=== PATIENT | female | born 1935 | race Caucasian/White ===

== ENCOUNTER 2017-01-30 15:43 | Inpatient (IN) | payer MEDICARE, BC ==
[~2017-01-30] VITALS: Ht 165.1 cm; Wt 60.8 kg
[~2017-01-30 15:43] MED LIST: ALBUTEROL2.5 MG/3 M INH; ATROVENT 0.02%2.5 ML UPD; BAYER CHEWABLE81 MG PO; BROVANA15 MCG/2 M NEB; COZAAR100 MG PO; CRESTOR10 MG PO; DUONEB 2.5-0.5 M3 ML UPD; ELAVIL10 MG PO; GLUCOPHAGE500 MG PO; METOPROLOL TAR100 M1 PO; NORVASC5 MG PO; PERPHEN AMITRIP PO; PERPHENAZINE2 MG PO; PLAVIX75 MG PO; PROVENTIL HFA6.7 GM INH; PULMICORT0.5 MG/21 NEB; SYNTHROID50 MCG PO; TOPROL XL50 MG PO
--- NOTE | 2017-01-30 16:05 | NUR ---
RECIEVED PATIENT VIA WHEELCHAIR. PATIENT AMBULATED FROM THE WHEELCHAIR AROUND THE ROOM. GAIT STEADY. PATIENT CHANGED INTO GOWN INDEPENDENTLY. BROUGHT PATIENT A CUP OF ICE WATER. FAMILY AT BEDSIDE.
[2017-01-30 16:10] VITALS: BP 153/89
[2017-01-30 17:00] LABS: BASOPHILS 0.5 % (0.0-2.0); EOSINOPHILS 0 % (0-7); HEMATOCRIT 43.8 % (36.0-48.0); HEMOGLOBIN 14.7 g/dL (12-16); MCH 32.2 pg (26.0-34.0); MCHC 33.6 g/dL (31.0-37.0); MCV 96.1 fL (80.0-100.0); MEAN PLATELET VOLUME 10.2 fL (7.4-10.4); NEUTROPHILS 84.5 % (40-80); PLATELET COUNT 174 10x3/uL (130-400); RBC 4.56 10x6/uL (4.00-5.40); RDW 12.7 % (11.5-14.5); WBC 7.7 10x3/uL (4.8-10.8)
[2017-01-30 17:09] LABS: ALBUMIN 3.6 g/dL (3.4-5.0); ANION GAP 12.9 mmol/L (8-16); BILIRUBIN - TOTAL 0.41 mg/dL (0.2-1.3); CALCIUM 9.7 mg/dL (8.5-10.1); CARBON DIOXIDE 29.3 mmol/L (21.0-32.0); CREATININE - SERUM 1.2 mg/dL (0.6-1.3); POTASSIUM - SERUM 4.2 mmol/L (3.5-5.1); PROTEIN - SERUM 7.6 g/dL (6.4-8.2)
--- NOTE | 2017-01-30 17:30 | NUR ---
TRIED TO START IV X'S 1 ATTEMPT TO LEFT FOREARM, UNSUCCESSFUL. DO NOT SEE ANY OTHER VIENS TO STICK. WILL FIND ANOTHER NURSE.
--- NOTE | 2017-01-30 18:00 | NUR ---
IV STARTED TO RIGHT AC BY CHICA CRABTREE.
[2017-01-30 18:25] VITALS: BP 153/89; BMI 22.3
[2017-01-30 20:00] VITALS: BP 154/77
--- NOTE | 2017-01-30 21:10 | NUR ---
AWAKE,ALERT, NO COMPLAINTS AT PRESENT. O2 AT 2L PER NC ON. NO DISTRESS NOTED. BILATERAL LUNG SOUNDS WIHT WHEEZING NOTED. IV INFUSING TO RAC WIHTOUT REDNESS OR EDEMA NOTED. CL IN REACH. FAMILY AT BEDSIDE.
[2017-01-31] VITALS: BP 120/70
--- NOTE | 2017-01-31 02:26 | NUR ---
EYES CLOSED. RESP EVEN AND UNLABORED. NO DISTRESS NOTED.
--- NOTE | 2017-01-31 03:29 | NUR ---
PT LYING BACK IN BED RESTING QUIETLY WITH EYES CLOSED. RR NONLABORED. NO S/S OF DISTRESS OR ANY CURRENT NEEDS AT THIS TIME. CL IN REACH, BED IN LOWEST, SIDE RAILS X2. WILL CTM.
[2017-01-31 04:00] VITALS: BP 153/83
[2017-01-31 05:29] LABS: BASOPHILS 0.4 % (0.0-2.0); EOSINOPHILS 0 % (0-7); HEMOGLOBIN 13.3 g/dL (12-16); IMMATURE GRANULOCYTES 1.1 % (0-5); LYMPHOCYTES 16.4 % (15-50); MCH 31.5 pg (26.0-34.0); MCHC 33.3 g/dL (31.0-37.0); MCV 94.8 fL (80.0-100.0); MEAN PLATELET VOLUME 10.2 fL (7.4-10.4); MONOCYTES 2.4 % (2-11); NEUTROPHILS 79.7 % (40-80); PLATELET COUNT 157 10x3/uL (130-400); RBC 4.22 10x6/uL (4.00-5.40); RDW 12.6 % (11.5-14.5)
[2017-01-31 05:32] LABS: WBC 5.5 10x3/uL (4.8-10.8)
[2017-01-31 05:55] LABS: ANION GAP 13.7 mmol/L (8-16); CALCIUM 9.2 mg/dL (8.5-10.1); CARBON DIOXIDE 25.3 mmol/L (21.0-32.0); CREATININE - SERUM 1.1 mg/dL (0.6-1.3); MAGNESIUM - SERUM 2.2 mg/dL (1.8-2.4); PHOSPHOROUS 3.2 mg/dL (2.5-4.9)
[2017-01-31 08:15] VITALS: BP 165/86
--- NOTE | 2017-01-31 10:33 | NUR ---
Patient Name: HAVEN VU Admission Status: Urgent Accout number: [id number] Admission Date: 01-30-2017 : 1935 Admission Diagnosis: Attending: MARCIA Current LOS: 1 Anticipated DC Date: Planned Disposition: Primary Insurance: MEDICARE A & B Discharge Planning Comments: CM MET WITH PATIENT AND GRANDDAUGHTER AT BEDSIDE TO DISCUSS D/C PLANNING AND NEEDS. THE PATIENT PLANS TO DISCHARGE HOME WHERE SHE RESIDES WITH HER SPOUSE. SHE STATES SHE IS INDEPENDENT OF ALL ADL'S AND THEY RESIDE IN A 2-STORY HOME BUT STATES SHE DOES NOT USE THE STAIRS. SHE DOES HAVE HOME OXYGEN, CPAP, AND NEBULIZER SUPPLIED BY [facility]. SHE DENIES THE NEED FOR ADDITIONAL DME/HOME HEALTH AT THIS TIME. THE PATIENT STATES HER HOME ENVIRONMENT IS SAFE TO RETURN TO. SHE STATED HER DAUGHTER "SHANNON ESPINOZA" () IS AN BUSINESS SALES CONSULTANT AND LIVES NEXT DOOR. SHE STATES HER TRANSPORTATION HOME WILL BE ONE OF HER FAMILY MEMBERS. CM WILL FOLLOW AND ASSIST NEEDED WITH DISCHARGE PLANNING/NEEDS. Preparation Plant Supervisor: Lisa De La Torre RN/CM * Is the patient Alert and Oriented? Yes 0 * How many steps to enter\\exit or inside your home? 4 0 * PCP Dr. Gonzales ([phone]) 0 * Pharmacy [facility] ([facility]) [phone] 0 * Preadmission Environment Home with Family 0 * ADLs Independent 0 * Equipment CPAP Nebulizer Oxygen 0 * Community resources currently utilized None 0 * Please name any agencies selected above. DME supplied by [facility] ([phone]) 0 * Additional services required to return to the preadmission environment? No 0 * Can the patient safely return to the preadmission environment? Yes 0 * Has this patient been hospitalized within the prior 30 days at any hospital? No 0 Grand Total: 0
[2017-01-31 12:45] VITALS: Ht 165.1 cm; Wt 60.8 kg
[2017-01-31 12:57] VITALS: BP 152/79
--- NOTE | 2017-01-31 14:55 | NUR ---
REPORT RECEIVED FROM REINA WHITEHEAD.
--- NOTE | 2017-01-31 16:06 | NUR ---
EVENING MEDS ADMINISTERED PER ORDER. FAMILY IN ROOM. CALL LIGHT IN REACH.
[2017-01-31 16:15] VITALS: BP 131/75
--- NOTE | 2017-01-31 16:51 | NUR ---
URINE SAMPLE COLLECTED AND SENT TO LAB.
[2017-01-31 17:15] LABS: APPEARANCE CLEAR (CLEAR); BILIRUBIN NEGATIVE (NEGATIVE); COLOR YELLOW (YELLOW); GLUCOSE 1000 mg/dL (NEGATIVE); KETONE NEGATIVE (NEGATIVE); LEUKOCYTE ESTERASE NEGATIVE (NEGATIVE); NITRITE NEGATIVE (NEGATIVE); PROTEIN NEGATIVE (NEGATIVE); UROBILINOGEN NORMAL (NORMAL)
[2017-01-31 20:00] VITALS: BP 133/59
--- NOTE | 2017-01-31 23:28 | NUR ---
ASSESSED AT THE BEGINNING OF THE SHIFT. PT IS ALERT AND ORIENTED, ABLE TO VERBALIZE NEEDS. SHE IS UP AD ROSA TO THE BATHROOM AND IS WEARING O2 AT 2 LITERS IN THE DAYTIME WITH CPAP AT NIGHTTIME. SHE HAS A RIGHT A/C IV SITE AND IT IS TO BE INFUSING AT 100 PER HR. BUT THE DAUGHTER HAS REQUESTED IT ONLY BE 50 PER HR SO IT IS GOING AT 50. AT THE BEGINNING OF THE SHIFT SHE HAD ABOUT 10 FAMILY MEMBERS IN THE ROOM BUT THERE IS ONLY A DAUGHTER SPENDING THE NIGHT. THE BED IS LOW, RAILS UP X'S 2 WITH THE CALL LIGHT AT HAND.
[2017-02-01] VITALS: BP 135/69
[2017-02-01 04:00] VITALS: BP 147/72
--- NOTE | 2017-02-01 07:35 | NUR ---
PATIENT RECEIVED ALERT IN MID REEDER POSITION RESTING QUIETLY. RESPIRATIONS EVEN AND UNLABORED. SIDE RAILS UP X2. BED IN LOW POSITION. CALL LIGHT IN REACH. DENIES NEEDS. FAMILY PRESENT.
[2017-02-01 08:50] VITALS: BP 147/87
--- NOTE | 2017-02-01 08:55 | NUR ---
PATIENT IN HIGH REEDER POSITION ALERT AND RESTING QUIETLY. RESPIRATIONS EVEN AND UNLABORED. SCHEDULED MEDICATION ADMINSITERED. DENIES NEEDS. FAMILY PRESENT. SIDE RAILS UP X2. BED IN LOW POSITION. CALL LIGHT IN REACH.
[2017-02-01 10:12] LABS: IMMUNOGLOBULIN E 11 IU/mL (0-100)
--- NOTE | 2017-02-01 11:05 | NUR ---
PATIENT ALERT IN BED WITH FAMILY AT BEDSIDE. RESPIRATIONS EVEN AND UNLABORED. DENIES NEEDS. SIDE RAILS UP X2. BED IN LOW POSITION. CALL LIGHT IN REACH.
[2017-02-01 12:48] VITALS: BP 142/94
--- NOTE | 2017-02-01 13:00 | NUR ---
PATIENT ALERT IN MID REEDER POSITION WITH FAMILY AT BEDSIDE. NO SIGNS OF DISTRESS NOTED. DENIES NEEDS. SIDE RAILS UP X2. BED IN LOW POSITION. CALL LIGHT IN REACH.
--- NOTE | 2017-02-01 16:47 | NUR ---
ALERT IN HIGH REEDER POSIITION. NO SIGNS OF DISTRESS NOTED. SCHEDULED MEDICATION ADMINISTERED. DENIES NEEDS. FAMILY PRESENT. SIDE RAILS UP X2. BED IN LOW POSITION. CALL LIGHT IN REACH.
[2017-02-01 16:49] VITALS: BP 110/71
--- NOTE | 2017-02-01 19:20 | NUR ---
PATIENT REQUESTED TYLENOL FOR 3/10 PAIN. PATIENT DENIES OTHER NEEDS AT THIS TIME. BED IN LOWEST POSITION AND CALL LIGHT WITHIN REACH.
[2017-02-01 20:59] VITALS: BP 161/85
[2017-02-02] VITALS: BP 168/88
[2017-02-02 04:00] VITALS: BP 149/73
[2017-02-02 05:24] LABS: BASOPHILS 0.1 % (0.0-2.0); EOSINOPHILS 0 % (0-7); HEMATOCRIT 38.9 % (36.0-48.0); HEMOGLOBIN 13.1 g/dL (12-16); IMMATURE GRANULOCYTES 1.3 % (0-5); LYMPHOCYTES 5.7 % (15-50); MCH 31.3 pg (26.0-34.0); MCHC 33.7 g/dL (31.0-37.0); MCV 93.1 fL (80.0-100.0); MEAN PLATELET VOLUME 9.8 fL (7.4-10.4); MONOCYTES 2.9 % (2-11); PLATELET COUNT 154 10x3/uL (130-400); RBC 4.18 10x6/uL (4.00-5.40); RDW 12.5 % (11.5-14.5); WBC 8.2 10x3/uL (4.8-10.8)
[2017-02-02 06:13] LABS: ANION GAP 11.1 mmol/L (8-16); CALCIUM 9.5 mg/dL (8.5-10.1); CARBON DIOXIDE 26.5 mmol/L (21.0-32.0); POTASSIUM - SERUM 3.6 mmol/L (3.5-5.1)
--- NOTE | 2017-02-02 07:45 | NUR ---
PATIENT RECEIVED ALERT IN HIGH REEDER POSITION. RESPIRATIONS EVEN AND UNLABORED. DENIES NEEDS. SIDE RAILS UP X2. BED IN LOW POSITION. CALL LIGHT IN REACH.
[2017-02-02 07:48] VITALS: BP 132/79
--- NOTE | 2017-02-02 08:30 | NUR ---
ALERT IN HIGH REEDER POSITION EATING BREAKFAST. TOLERATING WELL. SCHEDULED MEDICATION ADMINISTERED. DENIES NEEDS. FAMILY AT BEDSIDE.
--- NOTE | 2017-02-02 10:17 | NUR ---
PATIENT SITTING UP IN CHAIR ALERT WITH FAMILY PRESENT. NO SIGNS OF DISTRESS NOTED. SCHEDULED MEDICATION ADMINISTERED. IV TUBING CHANGED PER PROTOCOL. DENIES NEEDS. CALL LIGHT IN REACH.
[2017-02-02 12:22] VITALS: BP 161/83
--- NOTE | 2017-02-02 14:07 | NUR ---
PATIENT ALERT IN BED WITH FAMILY AT BEDSIDE. NO SIGNS OF DISTRESS NOTED. DENIES NEEDS. SIDE RAILS UP X2. BED IN LOW POSITION. CALL LIGHT IN REACH.
[2017-02-02 15:42] VITALS: BP 143/75
--- NOTE | 2017-02-02 17:00 | NUR ---
PATIENT ALERT IN BED EATING DINNER. NO SIGNS OF DISTRESS NOTED. INSTRUCTED PATIENT THAT WHEN SHE WAS READY FOR HER PRUNE JUICE/MOM COCKTAIL TO LEFT STAFF KNOW. STATES UNDERSTANDING. CALL LIGHT IN REACH. BED IN LOW POSITION. SIDE RAILS UP X2.
[2017-02-02 21:00] VITALS: BP 141/74
--- NOTE | 2017-02-02 21:44 | NUR ---
PATIENT RESTING IN BED WITH FAMILY AT BEDSIDE. ADMINISTERED MEDICATIONS AND PATIENT DENIES OTHER NEEDS AT THIS TIME. BED IN LOWEST POSITION AND CALL LIGHT WITHIN REACH. ENCOURAGED PATIENT TO CALL IF SHE HAS OTHER NEEDS.
[2017-02-03 01:30] VITALS: BP 157/78
[2017-02-03 04:00] VITALS: BP 117/66
[2017-02-03 05:10] LABS: BASOPHILS 0.2 % (0.0-2.0); EOSINOPHILS 0 % (0-7); HEMATOCRIT 37.6 % (36.0-48.0); HEMOGLOBIN 12.8 g/dL (12-16); IMMATURE GRANULOCYTES 2.2 % (0-5); LYMPHOCYTES 10.2 % (15-50); MCH 31.4 pg (26.0-34.0); MCV 92.2 fL (80.0-100.0); MEAN PLATELET VOLUME 10.1 fL (7.4-10.4); MONOCYTES 10.8 % (2-11); NEUTROPHILS 76.6 % (40-80); PLATELET COUNT 158 10x3/uL (130-400); RBC 4.08 10x6/uL (4.00-5.40); RDW 12.4 % (11.5-14.5); WBC 8.7 10x3/uL (4.8-10.8)
[2017-02-03 05:45] LABS: ALBUMIN 2.8 g/dL (3.4-5.0); ANION GAP 8.4 mmol/L (8-16); BILIRUBIN - TOTAL 0.28 mg/dL (0.2-1.3); CALCIUM 8.9 mg/dL (8.5-10.1); CARBON DIOXIDE 29.8 mmol/L (21.0-32.0); CREATININE - SERUM 0.9 mg/dL (0.6-1.3); MAGNESIUM - SERUM 2.1 mg/dL (1.8-2.4); POTASSIUM - SERUM 3.2 mmol/L (3.5-5.1)
--- NOTE | 2017-02-03 07:10 | NUR ---
PATIENT RECEIVED ALERT IN HIGH REEDER POSITION. RESPIRATIONS EVEN AND UNLABORED. FAMILY AT BEDSIDE. IV TO RIGHT AC RED AND PATIENT C/O PAIN TO SITE. IV D/C WITH CATH TIP INTACT. SITE COVERED WITH GAUZE AND BANDAID. DENIES NEEDS. SIDE RAILS UP X2. BED IN LOW POSITION. CALL LIGHT IN REACH.
--- NOTE | 2017-02-03 07:23 | HP ---
PATIENT: HAVEN VU MEDICAL RECORD: [id number] ACCOUNT: [id number] LOCATION:D.MS [id number] : 37 ADMISSION DATE: 01/30/17 HISTORY AND PHYSICAL EXAMINATION DATE OF ADMISSION: 01/30/2017 CHIEF COMPLAINT: Shortness of breath. HISTORY OF PRESENT ILLNESS: The patient is a 81-year-old female with longstanding history of COPD. Over the weekend, she had been treated by her daughter with has a Z-SALVADOR as well as a Medrol Dosepak for shortness of breath. She presented here 2 days ago and was placed on prednisone 40 mg every day, as well as updraft therapy. She states that she continued to have coughing and continued to have congestion and wheezing, which has not improved. It was felt the patient had failed outpatient therapy and needed hospitalization. PAST MEDICAL HISTORY: Significant that she had a history of having coronary artery disease with stents placed. She has had hemorrhoidectomy. She had a hysterectomy. She has had COPD, history of depression, hyperlipidemia, and hypertension. FAMILY HISTORY: Father had malignant neoplasm, cancer of the liver. Father has had substance abuse. Mother had heart disease. ALLERGIES: DEMEROL, EPINEPHRINE, AND PENICILLIN. CURRENT MEDICATIONS: Include amlodipine 5 mg 1 p.o. every day, aspirin 81 mg once a day, recently placed on Zithromax, Brovana 15 mcg per 2mL b.i.d., Valium on a p.r.n. basis, doxycycline 100 mg b.i.d., DuoNeb updrafts q.4 hours p.r.n. shortness of breath, levothyroxine 50 mcg once a day, losartan 100 mg once a day, metformin 500 mg 1 p.o. daily, metoprolol tartrate 100 mg p.o. b.i.d., nabumetone 500 mg 2 tabs p.r.n., nitroglycerin sublingual p.r.n., perphenazine/amitriptyline 2 mg/10 mg 1 p.o. b.i.d. Recently placed on Poly Hist Forte, prednisone, and Crestor 20 mg 1 p.o. every day. SOCIAL HISTORY: The patient is a former smoker, stopped in 1991, had been a 1 pack per day smoker. Educated through the 12th grade. 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 She denies any ethanol use or abuse. REVIEW OF SYSTEMS: CONSTITUTIONAL: She denies any headaches, seizures or syncope. She denies change in visual or auditory acuity. PULMONARY: She denies any sputum production, but has had increasing shortness of breath. She is on O2 at 3 liters. GASTROINTESTINAL: No chronic nausea, vomiting, melena or hematochezia. GENITOURINARY: No urgency, frequency or dysuria. PHYSICAL EXAMINATION: VITAL SIGNS: Today, her weight is 134, her blood pressure 172/90, her pulse 104, respirations were 20, O2 sat on 3 liters was 86%, and temperature is 97. HEENT: Head is normocephalic. No lesions. Ears: TMs clear. Eyes: Pupils equal, round and reactive to light. Her extraocular movements are intact. Her nasal cavity and oropharynx are clear. NECK: Supple. There is no adenopathy. HISTORY AND PHYSICAL [id number] HAVEN VU HEART: Slightly tachycardic. LUNGS: She had end-expiratory wheezes. ABDOMEN: Soft and bowel sounds are positive. No organomegaly. GENITAL AND RECTAL: Deferred. ASSESSMENT: Chronic obstructive pulmonary disease exacerbation failing outpatient therapy, history of arteriosclerotic heart disease, hypertension, hyperlipidemia, diabetes mellitus, and hypothyroidism. PLAN: The patient will be admitted. She will be placed on Rocephin 1 gram q.24 hours, Zithromax 500 mg IV q.24 hours, Solu-Medrol 1 mg/kg q.8 hours. Pulmonary consultation will be obtained. The patient will have O2 supplementation. She also will have ABGs on admission. TRANSINT:[id number] Voice Confirmation ID: [id number] DOCUMENT ID: [id number] ENRIQUETA HARRIS MD at 0723 CC: [id number] DICTATION DATE: 01/30/171744 SLOT EDITOR: 01/30/171923 [place] [address]
[2017-02-03 07:48] VITALS: BP 162/74
--- NOTE | 2017-02-03 08:25 | NUR ---
PATIENT SITTING UP IN CHAIR ALERT. NO SIGNS OF DISTRESS NOTED. SCHEDULED MEDICATION ADMINISTERED. DENIES NEEDS. CALL LIGHT IN REACH.
--- NOTE | 2017-02-03 09:45 | NUR ---
22 GAUGE IV SITED TO LEFT HAND BY REINA PRESTON
[2017-02-03 10:12] LABS: IMMUNOGLOBULIN A 161 mg/dL (64-422); IMMUNOGLOBULIN G 960 mg/dL (700-1600)
--- NOTE | 2017-02-03 10:50 | NUR ---
NUTRITION MONITORING & EVAL CHART REVIEWED, PT VISIT. TOLERATING ADA DIET, 75% INTAKE. WILL CONTIUE TO PROVIDE DIET. INFORMED DIET OFFICE RE:PT REQUEST FOR LACTAID MILK. RD FOLLOWING
--- NOTE | 2017-02-03 12:23 | NUR ---
ALERT IN BED EATING LUNCH. TOLERATING WELL. DENIES NEEDS. SIDE RAILS UP X2. BED IN LOW POSITION. CALL LIGHT IN REACH.
[2017-02-03 12:27] VITALS: BP 149/85
[2017-02-03 16:05] VITALS: BP 159/85
--- NOTE | 2017-02-03 16:50 | NUR ---
PATIENT ALERT IN HIGH REEDER POSITION. RESPIRATIONS EVEN AND UNLABORED. DENIES NEEDS. FAMILY PRESENT. SIDE RAILS UP X2. BED IN LOW POSITION. CALL LIGHT IN REACH.
--- NOTE | 2017-02-03 18:45 | NUR ---
PATIENT ALERT IN BED WATCHING TV. NO SIGNS OF DISTRESS NOTED. DENIES NEEDS. SIDE RAILS UP X2. BED IN LOW POSITION. CALL LIGHT IN REACH.
[2017-02-03 19:00] VITALS: BP 129/73
--- NOTE | 2017-02-03 19:48 | NUR ---
PATIENT RESTING IN BED WITH COMPLAINT OF IV SITE BURNING. I SLOWED THE RATE OF THE ANTIBIOTIC INFUSION AND THE PATIENT STATED THAT IT IS FEELING BETTER. FAMILY AT BEDSIDE AND PATIENT DENIES OTHER NEEDS AT THIS TIME. BED IN LOWEST POSITION AND CALL LIGHT WITHIN REACH. ENCOURAGED PATIENT TO CALL IF SHE HAS OTHER NEEDS.
[2017-02-04 04:00] VITALS: BP 143/71
[2017-02-04 06:28] LABS: BASOPHILS 0.3 % (0.0-2.0); EOSINOPHILS 0 % (0-7); HEMATOCRIT 40.2 % (36.0-48.0); HEMOGLOBIN 13.8 g/dL (12-16); IMMATURE GRANULOCYTES 2.9 % (0-5); LYMPHOCYTES 7.6 % (15-50); MCH 31.8 pg (26.0-34.0); MCHC 34.3 g/dL (31.0-37.0); MCV 92.6 fL (80.0-100.0); MEAN PLATELET VOLUME 10.3 fL (7.4-10.4); MONOCYTES 3.9 % (2-11); NEUTROPHILS 85.3 % (40-80); PLATELET COUNT 141 10x3/uL (130-400); RBC 4.34 10x6/uL (4.00-5.40); RDW 12.3 % (11.5-14.5); WBC 6.9 10x3/uL (4.8-10.8)
[2017-02-04 06:52] LABS: ANION GAP 7.5 mmol/L (8-16); CALCIUM 9.1 mg/dL (8.5-10.1); CARBON DIOXIDE 33.1 mmol/L (21.0-32.0); POTASSIUM - SERUM 4.6 mmol/L (3.5-5.1)
--- NOTE | 2017-02-04 07:00 | NUR ---
REPORT RECIEVED ASSUMED CARE. PATIENT IN BED WITH IV INTACT. NO COMPLAINTS AT THIS TIME. CALL LIGHT WITHIN REACH.
--- NOTE | 2017-02-04 07:45 | NUR ---
PATIENT BACK TO ROOM FROM XRAY. ASSESSMENT COMPLETE, VS STABLE. NO COMPLAINTS AT THIS TIME. CALL LIGHT WITHIN REACH. IV INTACT.
[2017-02-04 08:13] VITALS: BP 140/82
--- NOTE | 2017-02-04 11:50 | NUR ---
PATIENT IN BED WITH IV INTACT. NO COMPLAINTS A THIS TIME. CALL LIGHT WITHIN REACH.
[2017-02-04 12:18] VITALS: BP 146/77
[2017-02-04 15:52] VITALS: BP 141/80
--- NOTE | 2017-02-04 16:30 | NUR ---
PATIENT SITTING UP ON SIDE OF BED WITH NO COMPLAINTS. FAMILY AT BEDSIDE. CALL LIGHT WITHIN REACH.
--- NOTE | 2017-02-04 18:55 | NUR ---
PATIENT IN BED WITH IV INTACT. NO COMPLAINTS AT THIS TIME. CALL LIGHT WITHIN REACH. FAMILY AT BEDSIDE.
[2017-02-04 19:00] VITALS: BP 148/83
--- NOTE | 2017-02-04 20:13 | NUR ---
PT ASSESSMENT COMPLETE AWAKE AND ALERT ORIENTED X 3 PT SITTING UP IN BED WITH NO DISTRESS NOTED. CPAP PREPARED FOR PT USE AT HS. WILL GIVE MEDS PER ORDER. PT DENEIS NEEDS OR PAIN AT THIS TIME.
--- NOTE | 2017-02-04 23:54 | NUR ---
RESTING QUIETLY WITH NO DISTRESS NOTED VOICES ALL NEEDS CALL LIGHT IN REACH SIDE RAILS UP X 2
[2017-02-05 04:00] VITALS: BP 141/77
[2017-02-05 05:25] LABS: BASOPHILS 0.1 % (0.0-2.0); EOSINOPHILS 0 % (0-7); HEMATOCRIT 37.7 % (36.0-48.0); HEMOGLOBIN 12.7 g/dL (12-16); IMMATURE GRANULOCYTES 2.2 % (0-5); LYMPHOCYTES 16.9 % (15-50); MCH 31.4 pg (26.0-34.0); MCHC 33.7 g/dL (31.0-37.0); MCV 93.1 fL (80.0-100.0); MONOCYTES 9.1 % (2-11); NEUTROPHILS 71.7 % (40-80); PLATELET COUNT 134 10x3/uL (130-400); RBC 4.05 10x6/uL (4.00-5.40); RDW 12.2 % (11.5-14.5); WBC 7.3 10x3/uL (4.8-10.8)
[2017-02-05 05:35] LABS: ANION GAP 6.5 mmol/L (8-16); CALCIUM 8.7 mg/dL (8.5-10.1); CARBON DIOXIDE 32.2 mmol/L (21.0-32.0)
[2017-02-05 05:36] LABS: POTASSIUM - SERUM 3.7 mmol/L (3.5-5.1)
[2017-02-05] MEDS ORDERED: SINGULAIR10 MG PO (06:50)
[2017-02-05] MEDS ORDERED: COZAAR50 MG PO (06:53)
[2017-02-05] MEDS ORDERED: ZITHROMAX500 MG PO (06:54)
[2017-02-05] MEDS ORDERED: XOPENEX 1.1.25 MG/3 INH (06:54)
[2017-02-05] MEDS ORDERED: CEFUROXIME250 MG PO (06:55)
[2017-02-05] MEDS ORDERED: PREDNISONE10 MG PO (06:58)
[2017-02-05 08:50] VITALS: BP 131/79
--- NOTE | 2017-02-05 10:26 | NUR ---
CM REASSESSMENT NOTE: PATIENT IS DISCHARGING HOME TODAY-FAMILY AT BEDSIDE AND HE WILL DRIVE HER HOME. PATIENT DENIES HOME HEALTH (DAUGHTER IS AN MUSHROOM SORTER GRADER AND LIVES NEXT DOOR). PATIENT HAS O2 AND NEBULIZER AT HOME. PORTABLE IS NOT IN HER ROOM AND SHE STATED SHE DOES NOT WEAR OXYGEN ALL THE TIME AND THAT SHE WOULD BE FINE RIDING HOME WITHOUT O2. CM OFFERED TO CALL OXYGEN SUPPLIER TO BRING PORTABLE AND SHE DENIED STATING SHE WOULD BE FINE WITHOUT O2 GOING HOME. CM WILL CONTINUE TO FOLLOW PATIENT WITH D/C NEEDS AND PLANS.
[2017-02-05 11:30] VITALS: BP 122/73
--- NOTE | 2017-02-05 12:38 | NUR ---
DISCHRGE PAPERS AND INSTRUCTIONS GIVEN TO PATIENT AND SPOUSE, QUESTIONS ANSWERED, IV REMOVED WITH TIP INTACT, DISCHARGED PER WC WITH BELONGINGS.
--- NOTE | 2017-02-18 07:06 | DS ---
PATIENT:HAVEN VU :39 MEDICAL RECORD: [id number] DISCHARGE SUMMARY ADMISSION DATE: 01/30/17 DISCHARGE DATE: 02/05/17 DATE OF ADMISSION: 01/30/2017 DATE OF DISCHARGE: 02/05/2017 CONDITION ON DISCHARGE: Improved. ADMITTING DIAGNOSES: Chronic obstructive pulmonary disease exacerbation, history of arteriosclerotic heart disease, hypertension, hyperlipidemia, diabetes, hypothyroidism. DISCHARGE DIAGNOSES: Chronic obstructive pulmonary disease exacerbation, constipation, arteriosclerotic heart disease, hypothyroidism, gastroesophageal reflux, allergic rhinitis, O2 dependency, essential tremor. HOSPITAL COURSE: The patient is a 81-year-old female who had been treated on outpatient basis. Over the weekend prior to her admission, she had developed continued cough, continued congestion, continued wheezing. Despite being on prednisone 40 mg as well as updraft therapy, she continued to have coughing, congestion and it was felt the patient warranted admission. PHYSICAL EXAMINATION: VITAL SIGNS: The patient presented with a weight of 134, blood pressure of 172/90, her pulse was 100, respirations were 20, O2 sat on 3 liters of 86%, temperature was 97. HEENT: Unremarkable. NECK: Supple. There is no adenopathy. HEART: Slightly tachycardic. LUNGS: She had an end-expiratory wheeze, decreased breath sounds in all zhong. The patient was admitted and placed on Solu-Medrol as well as Rocephin and Zithromax. Pulmonary consultation was obtained. The patient was seen in consultation by Dr. Colin Doty, the business intelligence manager who agreed with the Solu-Medrol as well as the O2 supplementation, steroids, Rocephin, and Zithromax. Over the coming days, the patient's condition slowly began to improve. On the night, she had a white count of 7.3, hemoglobin was 12.7, hematocrit was 37.7 and her platelets were 134. She had sodium 142, potassium 3.7, chloride was 107, carbon dioxide was 32.2, BUN was 30, creatinine of 1. She had had a urinalysis, which was unremarkable. She did have 1000 mg per deciliter of glucose in her urine. The patient had had a chest x-ray on the , which showed minimal infiltrate or focal congestion in the right lower lung base. On the , the patient's x-ray showed no acute cardiopulmonary disease. The patient states she was ready for discharge. She was feeling well. Her temperature was 98. Her pulse was 72, respirations 19, her blood pressure 122/73. She had O2 sat of 98% on 2 liters nasal cannula. The patient was therefore discharged. DISCHARGE MEDICATIONS: Xopenex 1.25 q.4 hours p.r.n. shortness of breath, Cozaar 100 mg once a day, Singulair 10 mg once a day, Zithromax 500 mg 1 p.o. daily for 5 days, cefuroxime 200 mg p.o. b.i.d. for 7 days, prednisone 10 mg 1 p.o. every day. She would continue Crestor 10 mg once a day, aspirin 81 mg once a day, metoprolol tartrate 100 mg b.i.d., metformin 500 mg b.i.d., Synthroid 50 DISCHARGE SUMMARY REPORT [id number] HAVEN VU C mcg once a day, Triavil 10/2 mg 1 p.o. q.h.s., Norvasc 5 mg once a day, Pulmicort 0.5 mg per nebulizer b.i.d. DISCHARGE INSTRUCTIONS: The patient was to continue on a 2200-calorie ADA diet. She would follow up with me in 1 week. Continue O2 at 2 liters per minute. ACTIVITIES: Ad ashley. TRANSINT:[id number] Voice Confirmation ID: [id number] DOCUMENT ID: [id number] ENRIQUETA HARRIS MD at 0706 CC: [id number] DICTATION DATE: 02/16/17 1331 GLAZE SUPERVISOR: 02/17/17 0908 DIS IN 02/05/17 [id number] [place] [address]
== END 2017-02-05 13:28 | disposition home or self-care (01) | DRG 192 ==
LOC: D.MS 15:43
PROVIDERS: Family Medicine; Internal Medicine Pulmonary Disease; ADMIT Family Medicine
DX: J44.1 Chronic obstructive pulmonary disease with (acute) exacerbation (principal); K59.00 Constipation, unspecified; I25.10 Atherosclerotic heart disease of native coronary artery without angina pectoris; E03.9 Hypothyroidism, unspecified; K21.9 Gastro-esophageal reflux disease without esophagitis; J30.9 Allergic rhinitis, unspecified; Z99.81 Dependence on supplemental oxygen; G47.33 Obstructive sleep apnea (adult) (pediatric); Z87.891 Personal history of nicotine dependence; E11.9 Type 2 diabetes mellitus without complications; E78.5 Hyperlipidemia, unspecified; M35.00 Sjogren syndrome, unspecified; G25.0 Essential tremor; I10 Essential (primary) hypertension

== ENCOUNTER 2017-06-17 20:46 | Inpatient (IN) | payer MEDICARE, BC ==
[~2017-06-17] VITALS: Ht 165.1 cm; Wt 61.4 kg
[~2017-06-17 20:46] MED LIST changes: +CEFUROXIME250 MG PO; +COZAAR50 MG PO; +PREDNISONE10 MG PO; +SINGULAIR10 MG PO; +XOPENEX 1.1.25 MG/3 INH; +ZITHROMAX500 MG PO
[2017-06-17 22:17] LABS: BASOPHILS 0.1 % (0-2); EOSINOPHILS 2.6 % (0-7); HEMATOCRIT 34.9 % (36.0-48.0); HEMOGLOBIN 11.9 g/dL (12-16); IMMATURE GRANULOCYTES 0.3 % (0-5); LYMPHOCYTES 5.5 % (15-50); MCH 33.7 pg (26.0-34.0); MCHC 34.1 g/dL (31.0-37.0); MCV 98.9 fL (80.0-100.0); MEAN PLATELET VOLUME 9.5 fL (7.4-10.4); MONOCYTES 5.2 % (2-11); NEUTROPHILS 86.3 % (40-80); RBC 3.53 10x6/uL (4.00-5.40); RDW 12.8 % (11.5-14.5); WBC 9.1 10x3/uL (4.8-10.8)
[2017-06-17 22:36] LABS: PLATELET COUNT 163 10x3/uL (130-400)
[2017-06-17 22:44] LABS: ANION GAP 13.3 mmol/L (8-16); BILIRUBIN - TOTAL 0.35 mg/dL (0.2-1.3); CALCIUM 9.4 mg/dL (8.5-10.1); CARBON DIOXIDE 24.9 mmol/L (21.0-32.0); CREATININE - SERUM 1.1 mg/dL (0.6-1.3); POTASSIUM - SERUM 4.2 mmol/L (3.5-5.1)
--- NOTE | 2017-06-18 14:03 | NUR ---
RECEIVED TO ROOM 2214 AT THIS TIME FROM ER VIA WHEELCHAIR. FAMILY AT BEDSIDE. 3L OF OXYGEN APPLIED VIA NC. ASSESSMENT AND HISTORY OBTAINED PER FLOWSHEET. PT DENIES PAIN AT THIS TIME. SELF AMBULATORY AND CAN POSITION INDEPENDENTLY. CALL LIGHT IN REACH, WILL CONTINUE WITH PLAN OF CARE.
[2017-06-18 14:08] VITALS: BP 111/66; Ht 165.1 cm; Wt 61.4 kg
[2017-06-18] MEDS ORDERED: COZAAR100 MG PO (14:16)
[2017-06-18] MEDS ORDERED: BROVANA15 MCG/2 M INH (14:19)
--- NOTE | 2017-06-18 16:32 | NUR ---
SPOKE WITH CHICA PRESTON AT THIS TIME REGARDING PT'S HOME MEDICATIONS. SHE STATED THAT SHE WOULD SPEAK WITH DR MCCAULEY'S AND GIVE ME A RETURN PHONE CALL.
[2017-06-18 18:35] LABS: APPEARANCE CLEAR (CLEAR); BILIRUBIN NEGATIVE (NEGATIVE); COLOR YELLOW (YELLOW); GLUCOSE NEGATIVE (NEGATIVE); KETONE NEGATIVE (NEGATIVE); LEUKOCYTE ESTERASE 1+ (NEGATIVE); NITRITE NEGATIVE (NEGATIVE); PROTEIN NEGATIVE (NEGATIVE); UROBILINOGEN NORMAL (NORMAL)
[2017-06-18 18:36] LABS: RED CELLS - URINE OCC /hpf (0-5); WHITE CELLS - URINE 0-5 /hpf (0-5)
[2017-06-18 18:37] LABS: BACTERIA FEW /hpf (NONE SEEN)
--- NOTE | 2017-06-18 19:10 | NUR ---
REPORT RECEIVED FROM TYPE CASTING MACHINE OPERATOR NURSE. CALL LIGHT IN REACH.
[2017-06-18 20:00] VITALS: BP 132/71
--- NOTE | 2017-06-18 20:40 | NUR ---
NO NEEDS VOICED AT THIS TIME. CALL LIGHT IN REAC.
--- NOTE | 2017-06-18 22:22 | NUR ---
PM MEDS ADMINISTERED PER CHICA STRINGER. CALL LIGHT IN REACH.
--- NOTE | 2017-06-18 23:02 | NUR ---
CLAUS VELA. CALL LIGHT IN REACH.
--- NOTE | 2017-06-18 23:05 | NUR ---
REPORT RECIEVED ASSUMED CARE. PATIENT IN BED WITH NO COMPLAINTS AT THIS TIME. IV INTACT. FAMILY AT BEDSIDE. CALL LIGHT WITHIN REACH.
--- NOTE | 2017-06-18 23:49 | NUR ---
REPORT GIVEN TO REINA WHITEHEAD.
--- NOTE | 2017-06-18 23:55 | NUR ---
ASSESSMENT COMPLETE, VS STABLE. CPAP ON. BSCDS PLACED ON PATIENT. NO COMPLAINTS AT THIS TIME. IV INTACT. CALL LIGHT WITHIN REACH. FAMILY AT BEDSIDE.
--- NOTE | 2017-06-19 01:52 | NUR ---
PATIENT IN BED WITH EYES CLOSED RESTING QUIETLY. NO COMPLAINTS. FAMILY AT BEDSIDE. CALL LIGHT WITHIN REACH.
[2017-06-19 04:00] VITALS: BP 98/56
--- NOTE | 2017-06-19 04:09 | NUR ---
PATIENT IN BED RESTING QUIETLY AT THIS TIME. IV INTACT. FAMILY AT BEDSIDE. CALL LIGHT WITHIN REACH.
[2017-06-19] MEDS ORDERED: LEVAQUIN750 MG PO (07:08)
--- NOTE | 2017-06-19 07:15 | NUR ---
REPORT RECEIVED FROM PLUMBER SUPERVISOR NURSE. CALL LIGHT IN REACH.
[2017-06-19 08:15] VITALS: BP 119/68
--- NOTE | 2017-06-19 09:00 | NUR ---
UP AMBULATED IN HALLWAY PER SLEF WITH O2 IN PLACE. DENIES NEEDS. LUNGS IMPROVED FROM ADMISSION. DENIES PRODUCTIVE COUGH.
--- NOTE | 2017-06-19 09:07 | NUR ---
ASSESSMENT COMPLETED. AM MEDS ADMINISTERED. IV DC'D WITH TIP INTACT. CALL LIGHT IN REACH. WILL CONTINUE WITH PLAN OF CARE.
--- NOTE | 2017-06-19 09:55 | NUR ---
DC INSTRUCTIONS EXPLAINED TO PATIENT AND GRANDMOTHER. VERBALIZED UNDERSTANDING.
--- NOTE | 2017-06-23 07:12 | HP ---
PATIENT: HAVEN VU MEDICAL RECORD: [id number] ACCOUNT: [id number] LOCATION:D.MS [id number] : 39 ADMISSION DATE: 06/18/17 HISTORY AND PHYSICAL EXAMINATION DATE OF ADMISSION: 06/17/2017 CHIEF COMPLAINT: Fever. HISTORY OF PRESENT ILLNESS: The patient is a 81-year-old female with longstanding history of COPD. Apparently, she had developed fever, chills and sweats, which began at 1700 yesterday, on the . The patient reported having no cough and presented to the Emergency Room where she was felt to be possibly septic, having a possible pneumonia. It was felt the patient should be admitted. PAST MEDICAL HISTORY: Significant, she has had hypertension. She has had diabetes mellitus. She has had arteriosclerotic heart disease, hypothyroidism, COPD. The patient had hemorrhoidectomy. She has had a hysterectomy, history of having headaches. FAMILY HISTORY: Significant, mother had hyperlipidemia, at 77 years of age secondary to heart disease. Father had substance abuse, of malignant neoplasm of the liver at 49. MEDICATIONS: Include amlodipine 5 mg once a day, aspirin 81 mg once a day, Brovana 15 mcg/2 cc 2 cc b.i.d., diazepam 10 mg half tablet b.i.d. p.r.n., ipratropium/albuterol 0.5 mg/3 mg 1 vial q. 12 hours p.r.n. shortness of breath, levothyroxine 50 mcg once a day, losartan 100 mg once a day, metformin 500 mg once a day, metoprolol 100 mg twice daily, nitroglycerin p.r.n., ProAir 2 puffs q. 4 hours p.r.n. shortness of breath, Crestor 10 mg 1 p.o. daily. ALLERGIES: DEMEROL, EPINEPHRINE AND PENICILLIN. HABITS: The patient is a former smoker. 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 She denies any alcohol abuse. She stopped smoking in 1991. REVIEW OF SYSTEMS: CONSTITUTIONAL: She denies any headaches, seizures or syncope. Denies change in visual or auditory acuity. PULMONARY: She has developed mild cough. She has had no congestion. CARDIOVASCULAR: No chest pain, palpitation, PND or orthopnea. GASTROINTESTINAL: No chronic nausea, vomiting, melena or hematochezia. GENITOURINARY: No urgency, frequency or dysuria. PHYSICAL EXAMINATION: VITAL SIGNS: Today, this patient's blood pressure 143/69, pulse is 107, respirations 21, temperature was 103.3. HEENT: Unremarkable. NECK: Supple. There is no adenopathy. HEART: Has a regular rate and rhythm without any murmurs, gallops or rubs. LUNGS: Clear. ABDOMEN: Soft. The bowel sounds positive. No organomegaly. GENITAL AND RECTAL: Deferred. HISTORY AND PHYSICAL [id number] HAVEN VU The patient had a chest x-ray showing some interstitial changes, possible early pneumonia. LABORATORY DATA: Cardiac enzymes were unremarkable. The patient had a white count of 9.1, hemoglobin 11.9, hematocrit is 34.9 and her platelets are 163. ASSESSMENT: Fever, chills and sweat, possible early pneumonia. PLAN: The patient is admitted. Blood cultures will be obtained. Also, a sputum culture, urine will be taken. The patient will be started on Levaquin 750 mg IV. Updraft therapy initiated as well as O2 supplementation. TRANSINT:[id number] Voice Confirmation ID: [id number] DOCUMENT ID: [id number] ENRIQUETA HARRIS MD at 0712 CC: [id number] DICTATION DATE: 06/18/17736 DETAILER SCHOOL PHOTOGRAPHS: 06/19/17 020 DIS IN 06/19/17 [id number] [place] [address]
== END 2017-06-19 09:55 | disposition home or self-care (01) | DRG 190 ==
LOC: D.ER 20:46 → D.MS 06-18 11:25 → D.SDCHOLD 06-18 11:25 → D.MS 06-18 13:40
PROVIDERS: Family Medicine; ADMIT Family Medicine
DX: J44.0 Chronic obstructive pulmonary disease with (acute) lower respiratory infection (principal); J18.9 Pneumonia, unspecified organism; E11.9 Type 2 diabetes mellitus without complications; I10 Essential (primary) hypertension; E03.9 Hypothyroidism, unspecified; J44.9 Chronic obstructive pulmonary disease, unspecified

== ENCOUNTER → 2017-11-20 17:34 | Outpatient (CLI) | payer MEDICARE, BC ==
[2017-06-18 14:08] VITALS: BMI 22.5
[~2017-11-20 17:34] MED LIST changes: +BROVANA15 MCG/2 M INH; +LEVAQUIN750 MG PO
== END | disposition home or self-care (01) ==
LOC: D.MAMMO 15:00
DX: Z12.31 Encounter for screening mammogram for malignant neoplasm of breast (principal)

== ENCOUNTER 2018-12-04 08:00 | Outpatient (CLI) | payer MEDICARE, BC ==
[2017-06-18 14:08] VITALS: BMI 22.5
== END 2018-12-04 09:00 | disposition home or self-care (01) ==
LOC: D.MAMMO 08:00
DX: Z12.31 Encounter for screening mammogram for malignant neoplasm of breast (principal)

== ENCOUNTER 2020-02-11 09:00 | Outpatient (CLI) | payer MEDICARE, BC ==
[2017-06-18 14:08] VITALS: BMI 22.5
== END 2020-02-11 10:00 | disposition home or self-care (01) ==
LOC: D.MAMMO 09:00
PROVIDERS: ATTEND Family Medicine
DX: Z12.31 Encounter for screening mammogram for malignant neoplasm of breast (principal)